=== PATIENT | male | born 1995 | race Caucasian/White ===

== ENCOUNTER 2017-04-20 20:33 | Emergency (ER) | payer BC ==
[~2017-04-20] VITALS: Ht 180.3 cm; Wt 79.4 kg
[2017-04-20] MEDS ORDERED: METRONIDAZOLE 500 MG/NS 100 ML PIGGYBACK IV ONE (21:15)
[2017-04-20] MEDS ORDERED: DOXYCYCLINE HYCLATE IV 100 MG in IV DEXTROSE 5% 100 ML IV ONE (21:15)
[2017-04-20] MEDS ORDERED: METRONIDAZOLE 500 MG/NS 100ML 100 ML IV ONE (21:25)
[2017-04-20] MEDS ORDERED: DOXYCYCLINE HYCLATE 100 MG INJ IV ONE (21:40)
--- NOTE | 2017-04-20 22:38 | NUR ---
Patient discharged to home in stable conditon. Written and verbal after care instructions given. Patient verbalizes understanding of instructions.
== END 2017-04-20 22:39 | disposition home or self-care (01) ==
LOC: ER 20:36
DX: L03.113 Cellulitis of right upper limb (principal); S60.511A Abrasion of right hand, initial encounter; F10.20 Alcohol dependence, uncomplicated; F17.200 Nicotine dependence, unspecified, uncomplicated; Z88.0 Allergy status to penicillin; W55.03XA Scratched by cat, initial encounter; Y93.89 Activity, other specified; Y99.8 Other external cause status; Y92.89 Other specified places as the place of occurrence of the external cause
CPT/HCPCS: A4663; J3490; J7060